=== PATIENT | female | born 2005 | race Caucasian/White ===

== ENCOUNTER 2024-02-22 13:14 | Emergency (ER) | payer MEDICAID ==
[~2024-02-22] VITALS: Ht 167.6 cm; Wt 50.0 kg
[2024-02-22 14:02] VITALS: BP_SYST 98; TEMP 98.2
[2024-02-22 14:21] LABS: BILIRUBIN,URINE NEGATIVE (Neg); CLARITY,URINE CLEAR (Clear); COLOR,URINE YELLOW (Yellow); GLUCOSE, URINE NEGATIVE (Neg); KETONES,URINE NEGATIVE (Neg); LEUKOCYTE ESTERASE ,URINE NEGATIVE (Neg); NITRITES, URINE NEGATIVE (Neg); OCCULT BLOOD,URINE SMALL (Neg); PROTEIN,URINE NEGATIVE (Neg); URINE HCG NEGATIVE (NEG)
[2024-02-22 14:30] LABS: UA COLLECTION TYPE CLN CATCH MIDSTREAM
[2024-02-22 14:32] LABS: WBC,URINE 0-4 /HPF (0-4)
[2024-02-22 14:33] LABS: BACTERIA,URINE NONE SEEN /HPF (Neg); MUCUS STRANDS NONE SEEN /LPF (Neg); SQUAMOUS EPITHELIAL CELL,UR FEW /LPF (FEW)
[2024-02-22] MEDS ORDERED: iohexol 300mg/ml 100ml inj. ONE (15:16)
[2024-02-22 15:36] LABS: BASOPHILS % (AUTO) 0.4 % (0-1); EOSINOPHILS # (AUTO) 0.1 X10'3 (0-0.9); EOSINOPHILS % (AUTO) 1.8 % (0-6); HEMATOCRIT 36.9 % (35.0-45.0); HEMOGLOBIN 12.6 g/dl (12.0-16.0); LYMPHOCYTES # (AUTO) 2.1 X10'3 (1.1-4.8); LYMPHOCYTES % (AUTO) 33.2 % (21-51); MEAN CORPUSCULAR HEMOGLOBIN 29.9 PG (27.0-31.0); MEAN CORPUSCULAR HGB CONC 34.2 g/dL (33.0-36.5); MEAN CORPUSCULAR VOLUME 87.3 FL (78-98); MEAN PLATELET VOLUME 8.4 FL (7.4-10.4); MONOCYTES # (AUTO) 0.6 X10'3 (0-0.9); MONOCYTES % (AUTO) 9.7 % (2-12); NEUTROPHILS # (AUTO) 3.5 X10'3 (1.8-7.7); NEUTROPHILS % (AUTO) 54.9 % (42-75); PLATELET COUNT 257 X10'3 (140-440); RED BLOOD COUNT 4.23 X10'6 (4.20-5.60); RED CELL DISTRIBUTION WIDTH 12.6 % (11.5-14.5); WHITE BLOOD COUNT 6.5 X10'3 (4.5-11.0)
[2024-02-22 15:53] LABS: ALANINE AMINOTRANSFERASE 16 U/L (12-78); ALBUMIN 3.9 G/DL (3.4-5.0); ALBUMIN/GLOBULIN RATIO 1.2 (1.1-1.5); ALKALINE PHOSPHATASE 84 IU/L (20-180); ANION GAP 12 (8-16); ASPARTATE AMINO TRANSFERASE 13 U/L (10-37); BILIRUBIN,TOTAL 0.3 MG/DL (0.1-1.0); BLOOD UREA NITROGEN 7 MG/DL (7-18); BUN/CREATININE RATIO 10.1 (10.0-20.0); CALCIUM 8.7 MG/DL (8.5-10.1); CHLORIDE 105 MMOL/L (99-107); CREATININE 0.69 MG/DL (0.40-0.90); GLUCOSE 80 MG/DL (70-104); LIPASE 16 U/L (16-77); POTASSIUM 3.5 MMOL/L (3.5-5.1); SODIUM 140 MMOL/L (135-145); TOTAL CARBON DIOXIDE 22.6 MMOL/L (24-32); TOTAL PROTEIN 7.2 G/DL (6.4-8.2); eCRCL 104 ML/MIN; eGFR > 90 ML/MIN
[2024-02-22 16:09] VITALS: BP_DIAS 99; PULSE 66; RESP 16; O2SAT 70
== END 2024-02-22 16:10 | disposition home or self-care (01) ==
LOC: ER 13:14
DX: R10.30 Lower abdominal pain, unspecified (principal)
CPT/HCPCS: 36415; 74177; 80053; 81001; 81025; 83690; 85025; 99285; Q9967

== ENCOUNTER 2024-07-31 06:53 | Emergency (ER) | payer MEDICAID ==
[~2024-07-31] VITALS: Ht 167.6 cm; Wt 98.7 kg
--- NOTE | 2024-07-31 07:23 | Physician Documentation ---
History of Present Illness ~ Chief Complaint: Urinary Symptoms Stated Complaint: URINARY DIFFICULTIES Time Seen by MD: 07:11 Mode of Arrival: Ambulatory HPI Patient he was brought to the hospital by her mom. She is here that has some dysuria urgency frequency and some hematuria. Her symptoms started mildly last night and then became worse this morning. No fevers or chills no vomiting back pain. Last menstrual period was last week. She does not have vaginal discharge or significant risk for STI. Medication Reconciliation Allergies: Coded Allergies: No Known Allergies (Unverified , 02/22/24) Physical Exam Vital Signs: Temperature: 98.7, Heart Rate: 105, Respiratory Rate: 15, BP: 117/82, Pulse Oximetry: 99, Weight: 98.700 Oxygen Flow Rate: 0 Physical Exam General: Awake and Alert, no acute distress. HEENT: Conjunctiva pink, Sclera clear, Neck: Supple Resp: Unlabored. Heart: Good perfusion Abdomen: Nondistended Extremities: No cyanosis,clubbing or edema. Skin: Warm and Dry. Neuro: no focal deficits Progress Results/Orders Results/Orders Orders - ANETTE MORENO MD Urinalysis, Cult If Indicated (07/31/24 06:59) Hcg, Ur Ql (07/31/24 06:59) Vital Signs 07/31/24 07/31/24 06:57 07:09 Temp 98.7 Pulse 105 Resp 18 15 B/P (MAP) 117/82 Pulse Ox 99 O2 Flow Rate 0 Medical Decision Making Findings Patient is here with dysuria urgency frequency and hematuria. He was to have a cystitis. She was placed on Pyridium and Macrobid and discharged. Her heart rate was 105 in triage. Her heart rate came down to 95 and a room without any intervention. She is not toxic or septic. Departure Disposition: HOME / SELF CARE / HOMELESS Impression: Primary Impression: Acute urinary tract infection Discharge Instructions: Urinary Tract Infection, Adult Additional Instructions: Returned for fever or chills vomiting worsening pain or any concerns. Referrals: NO PRIMARY CARE PROVIDER (PCP) Prescriptions Phenazopyridine HCl (Pyridium) 200 Mg Tablet 1 TAB PO Q8H for urinary discomfort for 2 Days, #6 TAB 0 Refills Prov: ANETTE MORENO MD 07/31/24 Nitrofurantoin Monohyd/M-Cryst (Macrobid 100 mg Capsule) 100 Mg Capsule 1 CAP PO Q12H for 5 Days, #10 CAP 0 Refills Prov: ANETTE MORENO MD 07/31/24 Education Educated: Patient Educated regarding: diagnosis, treatment, prognosis, need for follow up Signature Scribe Signature: no scribe Attestation: no scribe ANETTE MORENO MD Jul 31, 2024 07:23
[2024-07-31] MEDS ORDERED: NITR100C6 PO (07:27)
[2024-07-31] MEDS ORDERED: PHEN-716 PO (07:27)
[2024-07-31 07:32] LABS: CLARITY,URINE TURBID (Clear); COLOR,URINE RED (Yellow); UA COLLECTION TYPE CLN CATCH MIDSTREAM
[2024-07-31 07:35] LABS: URINE HCG NEGATIVE (NEG)
[2024-07-31 07:39] LABS: RBC,URINE TNTC /HPF (0-2); WBC,URINE TNTC /HPF (0-4)
[2024-07-31 07:40] LABS: BACTERIA,URINE 1+ /HPF (Neg); MUCUS STRANDS NONE SEEN /LPF (Neg); SQUAMOUS EPITHELIAL CELL,UR MODERATE /LPF (FEW)
[2024-07-31] MEDS: nitrofuran monohydrate/nitrofuran macrocrysal 100 MG (MacroBID) capsule PO ONE (07:49)
[2024-07-31] MEDS: phenazopyridine 100mg tablet PO ONE (07:49)
[2024-07-31 07:51] VITALS: BP 101/61; PULSE 86; RESP 16; O2SAT 99
[2024-07-31 07:57] VITALS: TEMP 98.7
== END 2024-07-31 07:59 | disposition home or self-care (01) ==
LOC: ER 06:56
DX: N39.0 Urinary tract infection, site not specified (principal)
CPT/HCPCS: 81001; 81025; 87077; 87088; 87186; 99283